=== PATIENT | female | born 1990 | race African-American/Black ===

== ENCOUNTER 2018-04-19 11:31 | Emergency (ER) | payer BC ==
[~2018-04-19] VITALS: Ht 160 cm; Wt 65.8 kg
[2018-04-19 11:34] VITALS: BP 153/108
[2018-04-19] MEDS ORDERED: METHOCARBAMOL 500 MG TAB PO ONE (11:55)
[2018-04-19] MEDS ORDERED: HYDROcodone/APAP 5/325 MG 1 TAB TAB PO ONE (11:55)
[2018-04-19] MEDS ORDERED: KETOROLAC 60 MG/2 ML VIAL IM ONE (12:00)
[2018-04-19 12:28] VITALS: BP 138/95
--- NOTE | 2018-04-19 12:29 | NUR ---
Patient discharged with v/s stable. Written and verbal after care instructions given and explained. Patient alert, oriented and verbalized understanding of instructions. Ambulatory with steady gait. All questions addressed prior to discharge. ID band removed. Patient advised to follow up with PMD. Rx of ROBAXIN/ ---NO NORCO GIVEN PT REFUSED given. Patient educated on indication of medication including possible reaction and side effects. Opportunity to ask questions provided and answered.
== END 2018-04-19 12:29 | disposition home or self-care (01) ==
LOC: MED 11:31
DX: M62.838 Other muscle spasm (principal); M26.601 Right temporomandibular joint disorder, unspecified; I10 Essential (primary) hypertension
CPT/HCPCS: 96372; 99283; J1885

== ENCOUNTER 2020-01-14 13:23 | Emergency (ER) | payer BC ==
[~2020-01-14] VITALS: Ht 160 cm; Wt 74.4 kg
[2020-01-14 13:34] VITALS: BP 146/116
--- NOTE | 2020-01-14 13:39 | NUR ---
Pt ambulated to Lobby. Awaiting bed availability
--- NOTE | 2020-01-14 15:00 | NUR ---
29 Y/O F C/C BURNING PAIN RIGHT LOWER ABDOMINAL REGION RADIATING TO RIGHT THIGH/BACK AREA, 9/10 PAIN, NAUSEA. PER PT PREVIOUS HX OF UTI, HAS BEEN TO URGENT CARE TWICE, THIRD VISIT URGENT CARE REFERRED TO ER. PT CURRENTLY ON PRESCRIBED ABX FROM URGENT CARE STATES THERE IS NO RELIEF. PT NKA. HX OVARYAN CYST. RX ABX, DOES NOT RECALL NAME. PT DENIES V/D. SIDE RAIL X1.
[2020-01-14] MEDS: KETOROLAC 30 MG/ML VIAL IM ONE (15:21)
[2020-01-14 15:30] LABS: BASOPHILS # (AUTO) 0.1 K/uL (0.00-0.22); BASOPHILS % (AUTO) 1.1 % (0.0-2.0); EOSINOPHILS # (AUTO) 0.1 K/uL (0-0.4); EOSINOPHILS % (AUTO) 1.2 % (0.0-4.0); HEMATOCRIT 37.5 % (36-48); HEMOGLOBIN 12.8 g/dL (12.0-16.0); LYMPHOCYTES # (AUTO) 2.2 K/uL (2.5-16.5); LYMPHOCYTES % (AUTO) 33.8 % (20.5-51.1); MEAN CORPUSCULAR HEMOGLOBIN 30 pg (27-31); MEAN CORPUSCULAR HGB CONC 34 g/dL (33-37); MEAN CORPUSCULAR VOLUME 86.9 fL (80-94); MONOCYTES # (AUTO) 0.4 K/uL (0.8-1.0); MONOCYTES % (AUTO) 6.6 % (1.7-9.3); NEUTROPHILS # (AUTO) 3.7 K/uL (1.8-7.7); NEUTROPHILS % (AUTO) 57.3 % (42.2-75.2); PLATELET COUNT (AUTO) 281 K/uL (140-450); RED BLOOD CELL COUNT(AUTO) 4.32 MIL/uL (4.20-5.40); RED CELL DISTRIBUTION WIDTH 13.4 % (11.6-13.7); WHITE BLOOD COUNT (AUTO) 6.4 K/uL (4.8-10.8)
--- NOTE | 2020-01-14 15:30 | NUR ---
US AT BEDSIDE
[2020-01-14 15:46] LABS: ALBUMIN 3.9 g/dL (3.4-5.0); ANION GAP 12.4 (8-16); CARBON DIOXIDE 27.5 mmol/L (21-32); CREATININE 0.7 mg/dL (0.6-1.3); POTASSIUM 3.9 mmol/L (3.5-5.1); TOTAL BILIRUBIN 0.8 mg/dL (0.0-1.0)
[2020-01-14 15:54] LABS: APPEARANCE,URINE CLEAR (CLEAR); BILIRUBIN,URINE NEGATIVE (NEGATIVE); BLOOD, URINE NEGATIVE (NEGATIVE); COLOR,URINE YELLOW (YELLOW); LEUKOCYTE ESTERASE ,URINE 1+ (NEGATIVE); NITRITE, URINE NEGATIVE (NEGATIVE); UGLUCOSE NEGATIVE (NEGATIVE)
[2020-01-14 16:11] LABS: RBC,URINE 0-5 /HPF (0-5)
--- NOTE | 2020-01-14 16:36 | NUR ---
BENITA Gonsalves AND JAVI MONTES AT BEDSIDE PERFORMING PELVIC EXAM
--- NOTE | 2020-01-14 16:37 | NUR ---
PT RESTING IN BED, SIDE RAIL X1
[2020-01-14 17:50] VITALS: BP 140/94
--- NOTE | 2020-01-14 17:50 | NUR ---
Patient discharged with v/s stable. Written and verbal after care instructions given and explained. Patient alert, oriented and verbalized understanding of instructions. Ambulatory with steady gait. All questions addressed prior to discharge. ID band removed. Patient advised to follow up with PMD. Rx of KEFLEX, IBUPROFEN, PHENAZOPYRIDINE given. Patient educated on indication of medication including possible reaction and side effects. Opportunity to ask questions provided and answered.
[2020-01-16 08:14] LABS: CHLAMYDIA TRACHOMATIS AMP DNA Negative (Negative)
== END 2020-01-14 17:50 | disposition home or self-care (01) ==
LOC: MED 13:23
DX: N39.0 Urinary tract infection, site not specified (principal); I10 Essential (primary) hypertension
CPT/HCPCS: 36415; 76856; 80053; 81001; 81025; 83690; 85025; 87086; 87210; 87491; 93976; 96372; 99284; J1885; Q0092